=== PATIENT | female | born 1995 | race Caucasian/White ===

== ENCOUNTER 2017-12-07 16:25 | Emergency (ER) | payer OTHER, SELFPAY ==
[2017-12-07 16:26] VITALS: BP 126/71; PULSE 101; RESP 18; TEMP 37.3; O2SAT 97; BMI 31.1
--- NOTE | 2017-12-07 16:37 | ED.VISSUMM ---
- ER Visit Summary Date of Service: 12/07/17 Chief Complaint: Left leg injury History of Present Illness: The patient is a 22 F who injured her left lower leg in a rugby game last week. She was reinjured today when a player was tackled and landed on the patient's leg. She has bruising and tenderness noted to the medial left lower leg. She has been able to ambulate. Physical Examination: Vital signs unremarkable. Patient sitting upright in bed no acute distress. Head neck examination unremarkable. Heart is regular rate and rhythm. Left lower extremity examination was ecchymosis to the anterior left thigh without tenderness. There is ecchymosis to the anterior medial left michaels with tenderness. She has strong distal pulses. There is no tenderness at the knee or ankle joint itself. Sensation is intact with good range of motion. Test Results: Left tib-fib x-rays are obtained and unremarkable. Emergency Department Course and Treatment: Patient be advised to use Tylenol or ibuprofen as needed for pain. Treatment Plan: [] Disposition: Discharge Impression: Left leg contusion This note was generated with [employer] dictation software. It may contain incorrect words, spelling, and punctuation that were not noted in review of the chart prior to signing ED Disposition - Plan for ED Patient: Chief Complaint: Lower Extremity Injury Referrals: Care Physician,No Primary [Primary Care Provider] -
--- NOTE | 2017-12-07 16:45 | RAD_ITS ---
STUDY: X-RAY - LEFT TIBIA AND FIBULA REASON FOR EXAM: Female, 22 years old. Left lower leg pain. TECHNIQUE: 2 view(s) of the tibia and fibula were obtained. COMPARISON: None. FINDINGS: Normal visualized tibia. Normal visualized fibula. There is no demonstrated acute fracture. The soft tissue structures are unremarkable. RAD/Tibia & Fibula 2 Views IMPRESSION: Normal x-ray examination of the tibia and fibula. Electronically Signed: Kenan Clarke MD at 17:08 EDT , Service support ,
--- NOTE | 2017-12-07 17:23 | ED.DEP ---
ED Disposition - Plan for ED Patient: Disposition: Home or Assisted Living Chief Complaint: Lower Extremity Injury Instructions: ED Contusion Lower Ext [facility] -
--- NOTE | 2017-12-07 17:24 | DCINST.ED_ITS ---
ED Disposition - Plan for ED Patient: Disposition: Home or Assisted Living Chief Complaint: Lower Extremity Injury Instructions: ED Contusion Lower Ext [facility] -
== END 2017-12-07 17:39 | disposition home or self-care (01) ==
PROVIDERS: Emergency Provider Emergency Medicine
DX: S80.12XA Contusion of left lower leg, initial encounter (principal); W03.XXXA Other fall on same level due to collision with another person, initial encounter; Y93.63 Activity, rugby
CPT/HCPCS: 73590; 99282